=== PATIENT | male | born 1990 | race Caucasian/White ===

== ENCOUNTER 2024-05-03 22:08 | Emergency (ER) | payer SELFPAY ==
[~2024-05-03] VITALS: Ht 177.8 cm; Wt 83.7 kg
[2024-05-03 22:34] VITALS: TEMP 36.66960; O2SAT 100
[2024-05-03 22:45] VITALS: BP 121/84; PULSE 108; TEMP 98; O2SAT 97
[2024-05-03] MEDS: ACETAMINOPHEN 325MG TABLET PO ONE (23:17)
[2024-05-03 23:30] VITALS: RESP 16
[2024-05-03] MEDS: LIDOCAINE HCL/PF 1% 10 MG/ML 5ML VIAL INFIL ONE (23:30)
[2024-05-03] MEDS: BACITRACIN ZINC OINT UDPKT TOP ONE (23:30)
== END 2024-05-04 00:58 | disposition home or self-care (01) ==
LOC: ER 22:08
DX: S01.81XA Laceration without foreign body of other part of head, initial encounter (principal); W22.8XXA Striking against or struck by other objects, initial encounter; Y93.89 Activity, other specified; Y92.89 Other specified places as the place of occurrence of the external cause; Y99.8 Other external cause status
CPT/HCPCS: 99284; 70450; 70486; 12013; J3490